=== PATIENT | female | born 1955 | race Caucasian/White ===

== ENCOUNTER 2017-04-17 16:34 | Inpatient (IN) | payer MEDICARE, MEDICAID ==
[~2017-04-17 16:34] MED LIST: AMBIEN5 M1 PO; ANTACID LIQUID355 M1 PO; ASPIR 8181 M1 PO; ASPIRIN325 M3 PO; ATIVAN0.5 M1 PO; BAYER CHEWABLE81 M2 PO; CALCITRIOL0.25 MC1 PO; CALCITRIOL0.25 MCG PO; CALCIUM 600 +1 EA12 PO; CALCIUM CA500 MG/5 M PO; CALCIUM CARBONATE PEG; CALCIUM CARBONATE PO; CALCIUM PO; CARAFATE1 G/10 ML PO; CARAFATE1 G2 PO; CLARITIN10 M2 PO; CLARITIN10 M6 PO; COMPAZINE10 MG PO; CYCLOBENZAPRINE10 M1 PO; CYCLOBENZAPRINE5 M1 PO; Calcium Carbonate PO; DIFLUCAN100 M1 PO; DIFLUCAN200 M1 PO; DOCUSATE SODIU250 M1 PO; DULCOLAX5 M1 PO; DURAGESIC1 EAC2 TOP; DURAGESIC1 EAC2 TP; DURAGESIC1 EAC3 TOP; ECO-5325 MG PO; FIRST-MOUTHWAS237 ML PO; GUAIFENESIN200 M3 PO; GUAIFENESIN400 M1 PO; HYDROCODON-ACE1 EA15 PO; HYDROCODON-ACE1 EA17 PO; HYDROCODON-ACE1 EAC8 PO; KEFLEX500 M4 PO; LORAZEPAM0.5 MG PO; MAGIC MOUTHWASH PO; MELATONIN3 M4 PO; METOCLOPRAMIDE10 M2 PO; MILK OF MAGNESIA; MIRALAX17 G2 PO; MUCINEX PO; NEXIUM20 M1 PO; NEXIUM40 M1 PO; NEXIUM40 MG PO; NORCO 7.5-3251 EACH PO; OMEPRAZOLE20 M3 PO; PHILLIPS'400 MG/51 PO; PROMETHAZINE HC25 M3 PO; PROMETHAZINE25 MG PO; PROTONIX40 M2 PO; REGLAN10 M2 PO; ROCALTROL0.25 MC1 PO; ROCALTROL1 MCG/1 ML PO; SENOKOT-S TABL1 EACH PO; SERTRALINE HCL50 M1 PO; SLOW-MAG71.5 MG PO; STIMULANT LAXA1 EACH PO; SYNTHROID125 MC1 PO; SYNTHROID137 MC1 PO; SYNTHROID137 MCG PO; SYNTHROID150 MC1 PO; TUMS200 MG PO; TYLENOL325 M1 PO; TYLENOL325 M2 PO; ZITHROMAX250 MG PO; ZOFRAN ODT4 MG PO; ZOFRAN ODT8 MG PO; ZOLOFT100 M1 PO; ZOLOFT50 M1 PO; [UNRECOGNIZED DRUG - OTHER] PO
[2017-04-17] MEDS ORDERED: PROTONIX40 M2 PO (17:13)
[2017-04-17 17:23] LABS: BASO % 0.2 % (0-2); EOS % 0.4 % (0-7); HCT-HEMATOCRIT 37.5 % (34.0-49.0); HGB-HEMOGLOBIN 12.2 gm/dl (12.0-15.5); IMMATURE GRANULOCYTES ABSOLUTE 0.03 tho/cmm (0-0.03); IMMATURE GRANULOCYTES PERCENT 0.3 % (0-0.3); MCH (MEAN CORPUSCULAR HGB) 29.7 pg (28.0-32.0); MCHC MEAN CORPUSCULAR HGB CONC 32.5 % (32.0-36.0); MCV (MEAN CELL VOLUME) 91.2 fl (82.0-96.0); MEAN PLATELET VOLUME 9.7 cmc (9.4-12.4); MONO % 7.4 % (0-12); MONOCYTE ABSOLUTE COUNT 0.8 tho/cmm (0.0-1.2); NEUTROPHIL ABSOLUTE COUNT 8.9 tho/cmm (1.6-8.0); NEUTROPHIL-AUTOMATED 8.9 tho/cmm (1.6-8.0); NEUTROPHILS % 82.7 % (40-80); PLATELET COUNT 320 tho/cmm (150-450); RED BLOOD COUNT 4.11 mil/cmm (4.00-5.20); RED CELL DISTRIBUTION WIDTH 13.7 % (12.4-16.4); WHITE BLOOD COUNT 10.8 tho/cmm (4.0-10.0)
[2017-04-17 17:46] LABS: ALB/GLOB RATIO 0.7 (0.8-2.0); ALBUMIN 3.4 g/dl (3.5-5.0); ALKALINE PHOSPHATASE 130 U/L (33-138); ALT/SGPT 39 U/L (12-78); ANION GAP 14 mmol/L (0-20); AST/SGOT 38 U/L (10-40); BILIRUBIN,TOTAL 0.3 mg/dl (0-1.5); BLOOD UREA NITROGEN 16 mg/dl (6-24); CALCIUM 8.7 mg/dl (8.5-10.5); CARBON DIOXIDE-VENOUS 25 mmol/L (22-32); CHLORIDE 101 mmol/l (96-110); CREATININE 1.26 mg/dl (0.50-1.10); GLUCOSE 110 mg/dL (70-110); POTASSIUM 3.8 mmol/L (3.7-5.1); SODIUM 136 mmol/L (135-145); eGFR VALUE FOR BLACK 54 mL/Min
[2017-04-17 17:48] LABS: PROCALCITONIN 0.09 ng/ml (0.05-0.09)
[2017-04-17 18:05] LABS: URINE APPEARANCE CLEAR; URINE BILIRUBIN NEGATIVE (NEG); URINE BLOOD NEGATIVE (NEG); URINE COLOR YELLOW; URINE GLUCOSE (UA) NEGATIVE (NEG); URINE KETONE NEGATIVE (NEG); URINE LEUKOCYTE ESTERASE POSITIVE (NEG); URINE NITRITE NEGATIVE (NEG); URINE PROTEIN NEGATIVE (NEG)
[2017-04-17 18:10] LABS: URINE EPITHELIAL CELLS 0-1 /[HPF] (0-10); URINE RBC 0 /[HPF] (0-5); URINE WBC 0 /[HPF] (0-5)
[2017-04-17 23:07] LABS: PROTHROMBIN TIME 11.1 SECONDS (9.0-13.6)
[2017-04-18 02:35] LABS: BASO % 0.3 % (0-2); EOS % 1.1 % (0-7); EOSINOPHIL ABSOLUTE COUNT 0.1 tho/cmm (0.0-0.7); HCT-HEMATOCRIT 30.5 % (34.0-49.0); HGB-HEMOGLOBIN 9.7 gm/dl (12.0-15.5); IMMATURE GRANULOCYTES ABSOLUTE 0.02 tho/cmm (0-0.03); IMMATURE GRANULOCYTES PERCENT 0.3 % (0-0.3); LYMPH % 9.9 % (20-45); LYMPH ABSOLUTE COUNT 0.7 tho/cmm (0.8-4.5); MCHC MEAN CORPUSCULAR HGB CONC 31.8 % (32.0-36.0); MCV (MEAN CELL VOLUME) 91.3 fl (82.0-96.0); MEAN PLATELET VOLUME 9.1 cmc (9.4-12.4); MONO % 8.2 % (0-12); MONOCYTE ABSOLUTE COUNT 0.6 tho/cmm (0.0-1.2); NEUTROPHIL ABSOLUTE COUNT 5.8 tho/cmm (1.6-8.0); NEUTROPHIL-AUTOMATED 5.8 tho/cmm (1.6-8.0); NEUTROPHILS % 80.2 % (40-80); PLATELET COUNT 237 tho/cmm (150-450); RED BLOOD COUNT 3.34 mil/cmm (4.00-5.20); RED CELL DISTRIBUTION WIDTH 13.9 % (12.4-16.4); WHITE BLOOD COUNT 7.3 tho/cmm (4.0-10.0)
[2017-04-18 02:47] LABS: ALB/GLOB RATIO 0.7 (0.8-2.0); ALBUMIN 2.5 g/dl (3.5-5.0); ALKALINE PHOSPHATASE 89 U/L (33-138); ALT/SGPT 27 U/L (12-78); ANION GAP 12 mmol/L (0-20); AST/SGOT 25 U/L (10-40); BILIRUBIN,TOTAL 0.4 mg/dl (0-1.5); BLOOD UREA NITROGEN 11 mg/dl (6-24); CALCIUM 7.4 mg/dl (8.5-10.5); CARBON DIOXIDE-VENOUS 25 mmol/L (22-32); CHLORIDE 106 mmol/l (96-110); GLUCOSE 96 mg/dL (70-110); POTASSIUM 3.8 mmol/L (3.7-5.1); SODIUM 139 mmol/L (135-145)
[2017-04-18 02:54] LABS: CREATININE 1.15 mg/dl (0.50-1.10); eGFR VALUE FOR BLACK 60 mL/Min
[2017-04-20 05:36] LABS: ANION GAP 15 mmol/L (0-20); BLOOD UREA NITROGEN 19 mg/dl (6-24); CALCIUM 8.4 mg/dl (8.5-10.5); CARBON DIOXIDE-VENOUS 24 mmol/L (22-32); CHLORIDE 105 mmol/l (96-110); CREATININE 1.29 mg/dl (0.50-1.10); GLUCOSE 129 mg/dL (70-110); SODIUM 140 mmol/L (135-145); eGFR VALUE FOR BLACK 52 mL/Min
[2017-04-20 05:39] LABS: HCT-HEMATOCRIT 32.7 % (34.0-49.0); HGB-HEMOGLOBIN 10.6 gm/dl (12.0-15.5); IMMATURE GRANULOCYTES ABSOLUTE 0.02 tho/cmm (0-0.03); IMMATURE GRANULOCYTES PERCENT 0.3 % (0-0.3); LYMPH % 7.8 % (20-45); LYMPH ABSOLUTE COUNT 0.5 tho/cmm (0.8-4.5); MCH (MEAN CORPUSCULAR HGB) 29.4 pg (28.0-32.0); MCHC MEAN CORPUSCULAR HGB CONC 32.4 % (32.0-36.0); MCV (MEAN CELL VOLUME) 90.6 fl (82.0-96.0); MEAN PLATELET VOLUME 9.5 cmc (9.4-12.4); MONO % 1.6 % (0-12); MONOCYTE ABSOLUTE COUNT 0.1 tho/cmm (0.0-1.2); NEUTROPHIL ABSOLUTE COUNT 6.1 tho/cmm (1.6-8.0); NEUTROPHIL-AUTOMATED 6.1 tho/cmm (1.6-8.0); NEUTROPHILS % 90.3 % (40-80); PLATELET COUNT 333 tho/cmm (150-450); RED BLOOD COUNT 3.61 mil/cmm (4.00-5.20); RED CELL DISTRIBUTION WIDTH 13.5 % (12.4-16.4); WHITE BLOOD COUNT 6.8 tho/cmm (4.0-10.0)
[2017-04-20] MEDS ORDERED: MIRALAX17 G2 PO (11:22)
[2017-04-20] MEDS ORDERED: BACTRIM DS TAB1 EAC2 PO (11:22)
[2017-04-20] MEDS ORDERED: PREDNISONE10 M1 (11:23)
[2017-04-20] MEDS ORDERED: ULTRAM50 M1 PO (11:23)
[2017-04-20] MEDS ORDERED: NORCO 5-325 TA1 EACH PO (11:24)
== END 2017-04-20 13:25 | DRG 919 ==
LOC: EDMED 16:34 → EMR2 20:00 → PCUB 22:15 → 5WF 04-18 19:47
PROVIDERS: Family Medicine; Physician Assistant; ADMIT Hospitalist
DX: T86.822 Skin graft (allograft) (autograft) infection (principal); A41.9 Sepsis, unspecified organism; B37.0 Candidal stomatitis; L03.221 Cellulitis of neck; J98.11 Atelectasis; B95.8 Unspecified staphylococcus as the cause of diseases classified elsewhere; F32.9 Major depressive disorder, single episode, unspecified; E03.9 Hypothyroidism, unspecified; K21.9 Gastro-esophageal reflux disease without esophagitis; Z87.891 Personal history of nicotine dependence; Z90.02 Acquired absence of larynx; Z90.710 Acquired absence of both cervix and uterus; Z79.82 Long term (current) use of aspirin; Z85.89 Personal history of malignant neoplasm of other organs and systems; Z92.21 Personal history of antineoplastic chemotherapy; Y83.8 Other surgical procedures as the cause of abnormal reaction of the patient, or of later complication, without mention of misadventure at the time of the procedure
CPT/HCPCS: J1100; J1170; J2270; J2405; J2543; J3370; J7030; J7050; Q9967